=== PATIENT | female | born 1960 | race Caucasian/White ===

== ENCOUNTER 2016-04-18 20:19 | Emergency (ER) | payer OTHER ==
[~2016-04-18] VITALS: Ht 160 cm; Wt 68.0 kg
[~2016-04-18 20:19] MED LIST: TOPI25 PO
[2016-04-18 20:21] VITALS: BP 127/72; PULSE 90; RESP 16; TEMP 98; O2SAT 98
[2016-04-18] MEDS ORDERED: ERYTOIN10 RIGHT EYE (21:15)
--- NOTE | 2016-04-18 21:15 | PD ---
HPI Chief Complaint: Exposure to Blood/Body Fluids Time Seen by Provider: 21:10 Travel History International Travel<30 days: No Contact w/Intl Traveler<30days: No Traveled to known affect area: No History of Present Illness HPI Patient is in complaining of exposure to amniotic fluid that occurred around 1458 today. Patient states she was assisting in delivering a vaginal when amniotic fluid got over her eye shield soaked her face getting some in her right eye and small amount in her mouth. Patient states that she kept her eye closed when straight to the shower and washed off immediately and irrigated her eye thoroughly. Patient states patient was HIV negative but she is concerned as the source patient has history of IV drug abuse and is concerned about possible hep C. Patient reports her tetanus shot is up-to-date. Patient states she did have contact in her affected eye but has since taken out. Patient denies any pain with this, change in vision, headache, or other concerns. PFSH Past Medical History Diminished Hearing: No Migraines: Yes Tetanus Vaccination: < 5 Years Influenza Vaccination: Yes Tubal Ligation: Yes Social History Alcohol Use: Yes (SOCIALLY) Tobacco Use: No Substance Use: No Allergies-Medications (Allergen,Severity, Reaction): Coded Allergies: Penicillin (Verified Allergy, Severe, Hives, 04/18/16) Reported Meds & Prescriptions Reported Meds & Active Scripts Active Erythromycin Opth Oint 5 Mg/Gm Oint 1 Applic RIGHT EYE QID 7 Days Review of Systems Except as stated in HPI: all other systems reviewed are Neg Physical Exam Narrative GENERAL: Well-developed, well nourished, in no acute distress, and non-ill appearing. SKIN: Warm and dry. HEAD: Atraumatic. Normocephalic. EYES: Pupils equal and round. EOMI. No scleral icterus. No injection or drainage. ENT: No nasal bleeding or discharge. Mucous membranes pink and moist. NECK: Trachea midline. Supple. No nuclear rigidity. RESPIRATORY: No accessory muscle use. No respiratory distress. MUSCULOSKELETAL: No obvious deformities. No clubbing. No cyanosis. No edema. Full range of motion. NEUROLOGICAL: Awake and alert. No obvious cranial nerve deficits. Motor grossly within normal limits. Normal speech. PSYCHIATRIC: Appropriate mood and affect; insight and judgment normal. Data Data Last Documented VS Vital Signs Date Time Temp Pulse Resp B/P Pulse Ox O2 Delivery O2 Flow Rate FiO2 04/18/16 20:54 16 04/18/16 20:21 98.0 90 127/72 98 MDM Medical Decision Making Medical Screen Exam Complete: Yes Emergency Medical Condition: Yes Differential Diagnosis Body fluid exposure, HIV exposure, hepatitis C exposure, other Narrative Course Patient in no obvious distress upon re-evaluation. Patient was asked if they wanted to speak to my attending, which the patient did not wish to do at this time. Any questions/concerns in reference to patient diagnosis/condition discussed and clarified prior to patient's discharge. Reinforced sheer importance of close follow up with employee med. Instructed patient to return to ED immediately, if symptoms return/worsen. Pt showed understanding of above instructions. Further instructions and recommendations were detailed in discharge paperwork. Pt ambulated without difficulty out of ED at discharge. Diagnosis Primary Impression: Employee exposure to body fluids Referrals: Employ Med Patient Instructions: Body Substance Exposure (ED), General Instructions Additional Instructions: Follow-up with employee med in 24-48 hours. Take all medication as prescribed. The airway contacts and contact case. Do not place contact in right eye into finishing antibiotics and/or cleared by employee med. Return to the emergency department if symptoms get worse. Med/Other Pt SpecificInfo: Prescription(s) given Scripts Erythromycin Opth Oint 5 Mg/Gm Oint1 Applic RIGHT EYE QID 7 Days Ref 0 Prov:Kwasi Kendall MD 04/18/16 Disposition: 01 DISCHARGE HOME Condition: Stable Wayne Ferris Apr 18, 2016 21:15
== END 2016-04-18 21:31 | disposition home or self-care (01) ==
LOC: NEPB 20:19
DX: T15.91XA Foreign body on external eye, part unspecified, right eye, initial encounter (principal); T18.0XXA Foreign body in mouth, initial encounter; Y93.F9 Activity, other caregiving; Y99.0 Civilian activity done for income or pay; Y92.238 Other place in hospital as the place of occurrence of the external cause
CPT/HCPCS: 99283

== ENCOUNTER → 2017-07-29 | Outpatient (CLI) | payer OTHER ==
[~2017-07-29] MED LIST changes: +ESTR0.5T PO; +MEDR2.5T4 PO; +MULTTAB67 PO; +TOPA50TA7 PO; -TOPI25 PO; +TRET0.02 TOPICAL; +TUMS500C CHEW; +VITA1000 PO
[2017-07-29 14:29] LABS: BASOPHIL % 0.7 % (0.0-2.0); EOSINOPHIL # 0.1 TH/MM3 (0-0.4); HEMATOCRIT 37.7 % (35.0-46.0); HEMOGLOBIN 12.8 GM/DL (11.6-15.3); LYMPH % 21.7 % (9.0-44.0); LYMPHOCYTE # 1.3 TH/MM3 (1.0-4.8); MEAN CELL VOLUME 89.4 FL (80.0-100.0); MEAN CORPUSCULAR HEMOGLOBIN 30.4 PG (27.0-34.0); MEAN PLATELET VOLUME 8.3 FL (7.0-11.0); MONO % 7.9 % (0.0-8.0); MONOCYTE # 0.5 TH/MM3 (0-0.9); NEUT % 68.7 % (16.0-70.0); PLATELET COUNT 242 TH/MM3 (150-450); RED BLOOD COUNT 4.22 MIL/MM3 (4.00-5.30); RED CELL DISTRIBUTION WIDTH 13.2 % (11.6-17.2); WHITE BLOOD COUNT 5.8 TH/MM3 (4.0-11.0)
[2017-07-29 14:49] LABS: BICARBONATE 26.6 MEQ/L (21.0-32.0)
[2017-07-29 15:13] LABS: BILIRUBIN, URINE NEG (NEG); BLOOD, URINE NEG (NEG); GLUCOSE,URINE NEG (NEG); KETONE, URINE NEG (NEG); MUCUS URINE FEW /lpf (OCC); NITRITE,URINE NEG (NEG); SQUAMOUS EPITHELIAL CELL URINE 2 /hpf (0-5); URINE COLOR YELLOW (YELLW/STRAW); URINE LEUKOCYTE ESTERASE NEG (NEG)
--- NOTE | 2017-07-30 14:09 | EKG ---
Date Performed: 07/29/2017 Time Performed: 13:40:00 PTAGE: 56 years EKG: Sinus rhythm NONSPECIFIC T-WAVE ABNORMALITY BORDERLINE ECG NO PREVIOUS TRACING DOCTOR: Dougie Hernandez Interpretating Date/Time 07/30/2017 14:08:51
== END ==
LOC: CPRE 13:30
PROVIDERS: ATTEND Obstetrics & Gynecology
DX: Z01.812 Encounter for preprocedural laboratory examination (principal); Z01.810 Encounter for preprocedural cardiovascular examination; D25.9 Leiomyoma of uterus, unspecified; N83.202 Unspecified ovarian cyst, left side; R94.31 Abnormal electrocardiogram [ECG] [EKG]
CPT/HCPCS: 36415; 80051; 81001; 85025; 93005

== ENCOUNTER 2017-08-03 12:28 | Observation (INO) | payer OTHER ==
--- NOTE | 2017-08-02 13:10 | MH ---
cc: Andres Brownlee MD DATE OF ADMISSION: 08/03/2017 ADMITTING DIAGNOSES: 1, Uterine fibroids. 2. Left ovarian complex cyst. HISTORY OF PRESENT ILLNESS: The patient is a 56-year-old white female, para 3-0-2-3, who developed back pain in mid-June and had studies done through her primary which included a CAT scan of the pelvis and abdomen on 07/15/2017 which revealed multiple fibroids and a complex cyst on the left ovary with mural nodularity. Ultrasound was done of the abdomen and pelvis, which revealed gallbladder sludge, possible polyps, benign-appearing cyst in the liver and a uterus that measured 9.4 cm with fibroids and a 3.9 cm cystic left adnexal mass. She was seen by me for evaluation on 07/19/2017, which exam confirmed the fibroids and the cystic mass. A CA-125 from the same day was normal. She is now admitted for surgical evaluation. PAST SURGICAL HISTORY: Breast augmentation 2000 with replacement in 2003. MEDICATIONS: Estradiol and Provera. ALLERGIES: PENICILLIN. TRANSFUSIONS: None. SURGICAL ILLNESSES: History of migraines. OB HISTORY: Three vaginal deliveries. 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 Alcohol, tobacco and drugs are none. FAMILY HISTORY: Noncontributory. PHYSICAL EXAMINATION: GENERAL: She is a well-nourished, well-developed white female. VITAL SIGNS: Stable: HEENT: Exam is normal. CHEST: Clear. HEART: Regular rate. BREASTS: Symmetrical. ABDOMEN: Benign. PELVIC: Vagina is normal. Cervix normal. Uterus is about 14-weeks' size. Adnexal cyst on the left. ASSESSMENT: As above. PLAN: She is now admitted for a D and C, frozen section, laparoscopy, probable LASH, BSO, possible CLAY/BSO. She will have a preop bowel prep. The risk, benefits and complications including infection, injury, bleeding and different recovery times based on the type of incision were explained and accepted. MD WALESKA Flor/SB , 12:40 PM , 01:09 PM
[~2017-08-03] VITALS: Ht 160 cm; Wt 65.1 kg
[~2017-08-03 12:28] MED LIST changes: +DEXAMETHASONE SOD PHOS 4 MG/ML VIAL IV ONE; -ESTR0.5T PO; +GLYCOPYRROLATE 1 MG/5 ML SYRINGE IV PUSH ONE; +KETOROLAC TROMETHAMINE 30 MG/ML (IVP) VIAL IV PUSH ONE; +LACTATED RINGER'S 1000 ML INJ 2,000 ML IV ONE; +LIDOCAINE HCL 1% PF 5 ML SYRINGE OTHER ONE; -MEDR2.5T4 PO; +NEOSTIGMINE 5 MG/5 ML SYRINGE IV PUSH ONE; +ONDANSETRON HCL 4 MG/2 ML VIAL IV ONE; +PHENYLEPH/NS 1000 MCG/10 ML SYR IV ONE; +PROPOFOL 200 MG/20 ML AMP IV ONE; +ROCURONIUM INJ 50 MG/5 ML SYRINGE IV PUSH ONE; +SODIUM CHLORIDE 0.9% 20 ML VIAL IV ONE
[2017-08-03] MEDS ORDERED: ACETAMINOPHEN 1000 MG/100 ML 100 ML IV ONE ×2 (13:02→13:15)
[2017-08-03] MEDS ORDERED: SODIUM CHLORIDE 0.9% INJ 100 ML ONE (13:09)
[2017-08-03] MEDS ORDERED: CLINDAMYCIN PHOS 900 MG/6 ML VIAL ONE (13:09)
[2017-08-03] MEDS ORDERED: APREPITANT 40 MG CAP ONE (13:10)
[2017-08-03] MEDS ORDERED: FAMOTIDINE 20 MG/2 ML VIAL ONE (13:13)
[2017-08-03] MEDS ORDERED: CHLORHEXIDINE GLUCONATE 2 % 1 PACK (2 CLOTHS) TOPICAL PRN (13:15)
[2017-08-03] MEDS ORDERED: POVIDONE IODINE 5% (ANTISEPSIS KIT) 4 APPLICATIONS EACH NARE PRN (13:15)
[2017-08-03] MEDS ORDERED: METOPROLOL TARTRATE 25 MG TAB PO PRN (13:15)
[2017-08-03] MEDS ORDERED: LACTATED RINGER'S 1000 ML IV PRN (13:15)
[2017-08-03] MEDS ORDERED: SODIUM CHLORID 0.9% 500 ML IV PRN (13:15)
[2017-08-03] MEDS ORDERED: CLINDAMYCIN 900 MG/NS PREMIX 50 ML IV ONE (13:15)
[2017-08-03] MEDS ORDERED: BUPIVACAINE LIPOSOME PF 1.3% 20 ML VIAL ONE (13:27)
[2017-08-03] MEDS: D5-1/2 NS + KCL 20 MEQ INJ 1,000 ML IV SCH (16:54)
[2017-08-03] MEDS: KETOROLAC TROMETHAMINE 30 MG/ML (IVP) VIAL IVP SCH ×2 (17:00→23:00)
[2017-08-03] MEDS: DOCUSATE SODIUM 100 MG CAP PO SCH (17:00)
[2017-08-03] MEDS ORDERED: ONDANSETRON ODT 4 MG TAB PO PRN (17:00)
[2017-08-03] MEDS ORDERED: diphenhydrAMINE HCL 25 MG CAP PO PRN (17:00)
[2017-08-03] MEDS ORDERED: HYDROmorphone HCL PF 2 MG/ML VIAL IV PUSH PRN (17:00)
[2017-08-03] MEDS: ACETAMINOPHEN 1000 MG/100 ML VIAL IV SCH (17:00)
[2017-08-03] MEDS ORDERED: PROMETHAZINE INJ 25 MG/ML VIAL IM PRN (17:00)
[2017-08-03] MEDS ORDERED: DO NOT ADM ANY ANTICOAGULANT DRUGS PRN (17:22)
[2017-08-03] MEDS ORDERED: *morphine SULFATE 4 MG/ML PERIprocedure ONLY ONE (17:37)
[2017-08-03] MEDS ORDERED: MIDAZOLAM HCL 2 MG/2 ML VIAL ONE (17:41)
--- NOTE | 2017-08-03 17:58 | MP ---
cc: Andres Brownlee MD DATE OF OPERATION: 08/03/2017 PREOPERATIVE DIAGNOSES: Uterine fibroids, left ovarian cyst. POSTOPERATIVE DIAGNOSES: Uterine fibroids, left ovarian cyst, benign. SURGEON: Andres Brownlee MD [employer]ER: OZZIE Baeza PROCEDURE PERFORMED: Dilation and curettage, frozen section, laparoscopic supracervical hysterectomy, bilateral salpingo-oophorectomy. ANESTHESIA: General, ET. ESTIMATED BLOOD LOSS: 400 mL FLUIDS: 2 L crystalloid. OBJECTIVE FINDINGS: Following induction of adequate general endotracheal anesthesia, patient was prepped and draped supine on the operating table, dorsal lithotomy position, sterile fashion with bladder being drained by Elizondo catheterization. Exam revealed a 14-week size uterus, cystic left adnexa. Heavy weighted speculum was placed in the posterior fornix of the vagina. Anterior lip of the cervix grasped with single-toothed tenaculum. Cervix and uterus sounded to 9 cm. Cervix then dilated to a #18 Hanks dilator. Endocervical curettings obtained for a small curet for permanent study, endometrium with a small sharp curet for frozen, and a cervical cyst biopsied for permanent. The cervical cyst biopsy site was sutured with 3-0 Vicryl. The vaginal instruments removed. Operators gloves were changed. The abdomen was opened through a 3 cm curving infraumbilical incision using a knife to cut down through the skin to the fascia. Fascia opened transversely, stripped from the muscles, rectus muscle split in the midline and the peritoneum opened sharply without incident. The GelPort was placed. Laparoscope inserted. A 5 port placed left lower quadrant and an AirSeal in the right lower quadrant. Uterus was about 14-week size, multiple fibroids. Right ovary was normal. Left ovary was cystic with a 3 cm pedunculated portion that was torsing. Peritoneal washings were collected for permanent study. Harmonic scalpel was used to take the left ovarian vessels, the left mesosalpinx, the left utero-ovarian pedicle, and the left tube and ovary were sent for frozen section. Harmonic scalpel was now used to take the left broad ligament, left round ligament, left bladder flap and left uterine vessels. On the right, Harmonic scalpel was used to take the right ovarian vessels right round ligament, right broad ligament, right bladder flap and right uterine vessels. Harmonic scalpel was now used to amputate the fundus and the cervix. Frozen section returned benign on the left ovary. The fundus and right ovary were placed in the pouch, the pouch exteriorized and hand morcellated for no spillage. The irrigation was performed. Bleeding on the left side of the cervix was persistent, did not respond to Harmonic scalpel, so sutured with 2-0 Vicryl Quill stitch. Inspection of both ureters showed good peristalsis. Low pressure test with no bleeding. The operative sites were covered with Surgicel powder and Evicel to good effect. Again, the ureters inspected with good peristalsis. The Gelport was now removed. The peritoneum sutured with 2-0 Vicryl running, the fascia with a running 0 Vicryl, corners to midline, tied, subcutaneous with running 3-0 Vicryl, the skin with running subcuticular 3-0 Monocryl. The scope was now reinserted through lower port. Using a second GelPort, sites were all closed with no entrapment. Pelvis inspected with no bleeding. Scope was removed, ports removed, gas allowed to escape and the wounds closed with 3-0 Monocryl. Dermabond applied. The patient taken out of [facility]. Counts were correct and she was to receive a TAP block for anesthesia. MD WALESKA Flor/KARL , 05:02 PM , 05:56 PM KONSTANTIN
[2017-08-03 18:30] VITALS: BP 105/58; PULSE 72; RESP 18; TEMP 97.9; O2SAT 100
[2017-08-03 19:49] LABS: HEMATOCRIT 34.3 % (35.0-46.0); HEMOGLOBIN 11.5 GM/DL (11.6-15.3)
[2017-08-03] MEDS ORDERED: ZOLPIDEM TARTRATE 5 MG TAB PO PRN (21:00)
[2017-08-03 23:52] VITALS: BP 84/48; PULSE 67; RESP 17; TEMP 98.4
[2017-08-04] MEDS: D5-1/2 NS + KCL 20 MEQ INJ 1,000 ML IV SCH ×2 (01:13→17:11)
[2017-08-04] MEDS: ACETAMINOPHEN 1000 MG/100 ML VIAL IV SCH ×3 (01:14→17:06)
[2017-08-04 04:27] VITALS: BP 71/38; PULSE 61; RESP 17; TEMP 98
[2017-08-04 05:49] LABS: AUTOMATED NEUTROPHIL # 5.7 TH/MM3 (1.8-7.7); BASOPHIL % 0.3 % (0.0-2.0); HEMATOCRIT 31.4 % (35.0-46.0); HEMOGLOBIN 10.7 GM/DL (11.6-15.3); LYMPH % 7.5 % (9.0-44.0); LYMPHOCYTE # 0.5 TH/MM3 (1.0-4.8); MEAN CELL VOLUME 89.1 FL (80.0-100.0); MEAN CORPUSCULAR HEMOGLOBIN 30.2 PG (27.0-34.0); MEAN CORPUSCULAR HGB CONC 33.9 % (32.0-36.0); MONO % 8.9 % (0.0-8.0); MONOCYTE # 0.6 TH/MM3 (0-0.9); NEUT % 83.3 % (16.0-70.0); PLATELET COUNT 215 TH/MM3 (150-450); RED BLOOD COUNT 3.53 MIL/MM3 (4.00-5.30); RED CELL DISTRIBUTION WIDTH 13.2 % (11.6-17.2); WHITE BLOOD COUNT 6.8 TH/MM3 (4.0-11.0)
[2017-08-04] MEDS: DOCUSATE SODIUM 100 MG CAP PO SCH ×2 (05:57→17:11)
[2017-08-04] MEDS: KETOROLAC TROMETHAMINE 30 MG/ML (IVP) VIAL IVP SCH ×4 (05:57→22:55)
[2017-08-04 06:08] VITALS: BP 86/45; O2SAT 57
[2017-08-04 06:09] LABS: BICARBONATE 24.4 MEQ/L (21.0-32.0); CALCIUM 8.3 MG/DL (8.5-10.1); CREATININE 0.61 MG/DL (0.50-1.00)
[2017-08-04 09:28] VITALS: BP 91/58; PULSE 74; RESP 18; TEMP 98.9; O2SAT 100
[2017-08-04] MEDS: SIMETHICONE 80 MG CHEWABLE TAB PO PRN ×2 (19:02→22:55)
[2017-08-04 20:25] VITALS: BP 93/54; PULSE 60; RESP 16; TEMP 97.9
[2017-08-05 00:04] VITALS: BP 128/70; PULSE 62; RESP 16; TEMP 98
[2017-08-05] MEDS: D5-1/2 NS + KCL 20 MEQ INJ 1,000 ML IV SCH (00:54)
[2017-08-05] MEDS: ACETAMINOPHEN 1000 MG/100 ML VIAL IV SCH ×2 (01:26→09:15)
[2017-08-05 04:54] VITALS: BP 103/65; PULSE 62; RESP 16; TEMP 98
[2017-08-05] MEDS: DOCUSATE SODIUM 100 MG CAP PO SCH (05:12)
[2017-08-05] MEDS: KETOROLAC TROMETHAMINE 30 MG/ML (IVP) VIAL IVP SCH (05:12)
[2017-08-05] MEDS: SIMETHICONE 80 MG CHEWABLE TAB PO PRN (05:13)
[2017-08-05 05:30] VITALS: TEMP 98.4
[2017-08-05 07:47] VITALS: BP 121/67; PULSE 76; RESP 18; TEMP 97.9; O2SAT 95
--- NOTE | 2017-08-05 08:07 | HHI.DCPOC ---
Discharge Care Plan Report Symptoms to Your Doctor -Temperature above 100.5 degrees -Redness, of incision or excessive or foul smelling drainage -Unusual pain or calf pain -Increased vaginal bleeding -Painful or difficulty urinating -Feelings of extreme sadness or anxiety after 2 weeks Goals to Promote Your Health * To prevent worsening of your condition and complications * To maintain your health at the optimal level Directions to Meet Your Goals Take your medications as prescribed Follow your dietary instruction Follow activity as directed Ensure plenty of rest for recovery Drink fluids for hydration Keep your appointments as scheduled Take your immunizations and boosters as scheduled If your symptoms worsen call your PCP, if no PCP go to Urgent Care Center or Emergency Room Smoking is Dangerous to Your Health. Avoid second hand smoke Call the 24-hour crisis hotline for domestic abuse at Andres Brownlee MD Aug 05, 2017 08:07
[2017-08-05] MEDS ORDERED: ACETAMINOPHEN 500 MG CPLT PO SCH (17:00)
== END 2017-08-05 11:02 | disposition home or self-care (01) ==
LOC: HSDC 12:28 → HSDI 16:56 → H1EA 18:13
PROVIDERS: ADMIT Obstetrics & Gynecology; ATTEND Obstetrics & Gynecology
DX: D27.1 Benign neoplasm of left ovary (principal); N83.8 Other noninflammatory disorders of ovary, fallopian tube and broad ligament; D25.9 Leiomyoma of uterus, unspecified; N85.8 Other specified noninflammatory disorders of uterus
CPT/HCPCS: 00840; 58542; 80048; 85014; 85018; 85025; 86850; 86900; 86901; 87015; 87070; 87102; 87116; 87205; 87206; 88305; 88307; 88331; 94150; 96365; 96366; 96375; C9290; G0378; J0131; J1100; J1170; J1885; J2250; J2270; J2370; J2405; J2710; J3010; J3480; J7120; J8501